=== PATIENT | male | born 1950 | race Two or more races ===

== ENCOUNTER 2017-07-23 13:55 | Inpatient (IN) | payer OTHER ==
[~2017-07-23] VITALS: Ht 175.3 cm; Wt 78.5 kg
[~2017-07-23 13:55] MED LIST: ASPI81CH43 PO; DULO30CA2 PO; HYDR-4683 PO; ISOS10TA14 PO; MUPI2OIN10 TOP; NITR0.4S29 SL; ONDA4TAB5 PO; OXYB15TA12 PO; PRAV20TA3 PO; TICA90TA PO
[2017-07-23] MEDS ORDERED: ONDANSETRON HCL 4 MG/2 ML VIAL IV ONE (14:30)
[2017-07-23] MEDS ORDERED: MORPHINE SULFATE 10 MG/ML INJ 1ML SDV IV ONE (14:30)
[2017-07-23 14:41] LABS: Basophils # (auto) 0 uL; Basophils % (auto) 0.3 % (0.0-2.0); Eosinophils # (auto) 0.1 uL; Eosinophils % (auto) 0.6 % (0.0-7.0)
[2017-07-23 14:42] LABS: Hematocrit 32.7 % (41.0-53.0); Hemoglobin 10.8 g/dL (13.5-17.5); Lymphocytes # (auto) 1.6 uL; Lymphocytes % (auto) 14.4 % (10.0-50.0); Mean Corpuscular Hgb Conc. 33.2 g/dL (32.0-36.0); Mean Corpuscular Volume 93.3 fL (80.0-100.0); Monocytes # (auto) 0.8 uL; Monocytes % (auto) 7.4 % (0.0-12.0); Neutrophils # (auto) 8.5 uL; Neutrophils % (auto) 77.3 % (37.0-80.0); Platelet Count (auto) 606 10^3/uL (140-450); Red Cell Distribution Width 14.4 % (11.8-14.3); White Blood Cell 11.1 10^3/uL (4.4-10.8)
[2017-07-23 15:02] LABS: BUN/Creatinine Ratio 36.5; Bilirubin, Total 0.3 mg/dL (0.2-1.0); Calcium 9.2 mg/dL (8.5-10.1); Magnesium 1.9 mg/dL (1.6-2.6); Total Protein 7.3 g/dL (6.4-8.2)
[2017-07-23 15:06] LABS: Partial Thromboplastin Time 25.2 sec (22.64-33.71); Prothrombin Time 10.9 sec (9.37-12.3)
[2017-07-23] MEDS ORDERED: METOPROLOL TARTRATE 25 MG TAB PO ONE (15:15)
[2017-07-23] MEDS ORDERED: NITROGLYCERIN 0.4 MG SL TAB SL PRN (15:15)
[2017-07-23] MEDS ORDERED: ENOXAPARIN SOD 80 MG/0.8ML SYRINGE SC ONE (15:15)
[2017-07-23 15:19] LABS: B-Type Natriuretic Peptide 11.03 pg/mL (0-100)
[2017-07-23] MEDS ORDERED: IOHEXOL 350 MG/ML 100ML IJ ONE (15:26)
[2017-07-23] MEDS: ALPRAZolam 0.25 MG TAB PO SCH ×2 (15:30→22:44)
[2017-07-23] MEDS ORDERED: PANTOPRAZOLE 40 MG TAB PO ONE (15:30)
[2017-07-23 15:40] LABS: Temperature: 23.1 C (20.0-25.0)
[2017-07-23 17:00] VITALS: BP 102/72
[2017-07-23] MEDS ORDERED: AMLO5TAB2 PO (17:51)
[2017-07-23] MEDS ORDERED: TICA90TA PO (17:51)
[2017-07-23] MEDS ORDERED: ATOR20TA50 PO (17:52)
[2017-07-23] MEDS ORDERED: CLOP75TA28 PO (17:52)
[2017-07-23] MEDS ORDERED: LISI-646 PO (17:53)
[2017-07-23] MEDS ORDERED: CARV3.1240 PO (17:54)
[2017-07-23 18:11] LABS: Urine Bilirubin Negative (Negative); Urine Blood 1+ /uL (Negative); Urine Color Yellow (Yellow); Urine Glucose Normal (Normal); Urine Ketone Negative (Negative); Urine Mucus FEW (None Seen); Urine Nitrite Negative (Negative); Urine RBC 16 /hpf (0 - 3); Urine Squamous Epithelial Cell FEW /hpf (<5); Urine Urobilinogen Normal (Negative); Urine pH 5.5 (5.0-8.0)
[2017-07-23] MEDS: HYDROcodone-ACET 5/325MG TAB PO PRN ×2 (18:31→23:44)
[2017-07-23] MEDS ORDERED: SODIUM CHLORIDE 0.9% 1,000 ML IV ONE (18:45)
[2017-07-23 20:00] VITALS: BP 117/90
[2017-07-23] MEDS: TICAGRELOR 90 MG TAB PO SCH (22:43)
[2017-07-23] MEDS: ATORVASTATIN 20 MG TAB PO SCH (22:44)
[2017-07-23] MEDS: METOPROLOL TARTRATE 25 MG TAB PO SCH (22:46)
[2017-07-24] VITALS: BP 123/87
[2017-07-24] MEDS: ONDANSETRON HCL 4 MG/2 ML VIAL IV PRN ×2 (00:58→18:27)
[2017-07-24] MEDS: MORPHINE SULFATE 10 MG/ML INJ 1ML SDV IV PRN ×2 (01:34→23:15)
[2017-07-24 02:00] VITALS: BP 117/79
[2017-07-24 04:30] VITALS: BP 107/47
[2017-07-24 05:03] LABS: Eosinophils # (auto) 0.1 uL; Eosinophils % (auto) 1.2 % (0.0-7.0); Lymphocytes # (auto) 1.6 uL
[2017-07-24 05:05] LABS: Basophils # (auto) 0 uL; Basophils % (auto) 0.4 % (0.0-2.0); Hematocrit 23.9 % (41.0-53.0); Hemoglobin 8.2 g/dL (13.5-17.5); Lymphocytes % (auto) 17.5 % (10.0-50.0); Mean Corpuscular Hemoglobin 31.9 pg (28.0-32.0); Mean Corpuscular Hgb Conc. 34.1 g/dL (32.0-36.0); Mean Corpuscular Volume 93.5 fL (80.0-100.0); Mean Platelet Volume 7.7 fL (6.9-10.8); Monocytes # (auto) 0.6 uL; Neutrophils # (auto) 6.7 uL; Neutrophils % (auto) 73.9 % (37.0-80.0); Platelet Count (auto) 390 10^3/uL (140-450); Red Cell Distribution Width 14.5 % (11.8-14.3); White Blood Cell 9.1 10^3/uL (4.4-10.8)
[2017-07-24 05:20] LABS: Calcium 8.4 mg/dL (8.5-10.1); Potassium 3.8 mmol/L (3.5-5.1)
[2017-07-24 05:23] LABS: BUN/Creatinine Ratio 46.5
[2017-07-24] MEDS: HYDROcodone-ACET 5/325MG TAB PO PRN ×3 (06:28→20:23)
[2017-07-24] MEDS ORDERED: ASPirin 81 mg TAB PO SCH (10:00)
[2017-07-24] MEDS: TICAGRELOR 90 MG TAB PO SCH (10:30)
[2017-07-24] MEDS: ALPRAZolam 0.25 MG TAB PO SCH (10:30)
[2017-07-24] MEDS: METOPROLOL TARTRATE 25 MG TAB PO SCH ×2 (10:31→22:04)
[2017-07-24] MEDS: PANTOPRAZOLE 40 MG TAB PO SCH (10:32)
[2017-07-24] MEDS: DULoxetine HCL 30 MG CAP PO SCH (10:32)
[2017-07-24 12:00] VITALS: BP 111/74
[2017-07-24] MEDS: RANOLAZINE ER 500 MG TAB PO SCH ×2 (12:00→22:07)
[2017-07-24 16:00] VITALS: BP 127/87
[2017-07-24] MEDS ORDERED: LEVALBUTEROL HCL 1.25 MG/3 ML NEB NEB PRN (18:45)
[2017-07-24 19:07] LABS: Basophils # (auto) 0 uL; Basophils % (auto) 0.4 % (0.0-2.0); Eosinophils # (auto) 0.1 uL; Mean Corpuscular Volume 94.9 fL (80.0-100.0); Mean Platelet Volume 7.9 fL (6.9-10.8); Monocytes # (auto) 0.7 uL; Nucleated Red Blood Cells % 0.1 %
[2017-07-24 19:08] LABS: Eosinophils % (auto) 0.7 % (0.0-7.0); Hematocrit 20.8 % (41.0-53.0); Lymphocytes # (auto) 1.2 uL; Lymphocytes % (auto) 10.1 % (10.0-50.0); Mean Corpuscular Hemoglobin 31.6 pg (28.0-32.0); Mean Corpuscular Hgb Conc. 33.3 g/dL (32.0-36.0); Monocytes % (auto) 6.1 % (0.0-12.0); Neutrophils # (auto) 9.4 uL; Neutrophils % (auto) 82.7 % (37.0-80.0); Platelet Count (auto) 354 10^3/uL (140-450); Red Cell Distribution Width 14.5 % (11.8-14.3); White Blood Cell 11.4 10^3/uL (4.4-10.8)
[2017-07-24 19:16] LABS: Hemoglobin 6.9 g/dL (13.5-17.5)
[2017-07-24 21:08] VITALS: BP 127/87
[2017-07-24] MEDS ORDERED: TICAGRELOR 90 MG TAB PO SCH (22:00)
[2017-07-24] MEDS ORDERED: ISOSORBIDE DINITRATE 10 MG TAB PO SCH (22:00)
[2017-07-24] MEDS: LEVALBUTEROL HCL 1.25 MG/3 ML NEB NEB SCH (22:02)
[2017-07-24] MEDS: ATORVASTATIN 20 MG TAB PO SCH (22:03)
[2017-07-25] VITALS (21 sets, daily range): BP systolic 82–163; BP diastolic 40–103
[2017-07-25] MEDS: ONDANSETRON HCL 4 MG/2 ML VIAL IV PRN (03:26)
[2017-07-25] MEDS: LEVALBUTEROL HCL 1.25 MG/3 ML NEB NEB SCH ×3 (05:47→19:11)
[2017-07-25] MEDS ORDERED: ALPR0.5T PO (06:24)
[2017-07-25] MEDS ORDERED: PANTOPRAZOLE 40 MG/10 ML VIAL IV ONE ×2 (06:35→06:45)
[2017-07-25 08:02] LABS: Basophils # (auto) 0 uL; Eosinophils # (auto) 0 uL; Eosinophils % (auto) 0.1 % (0.0-7.0); Lymphocytes # (auto) 1.1 uL; Mean Corpuscular Hgb Conc. 33.8 g/dL (32.0-36.0); Mean Platelet Volume 7.8 fL (6.9-10.8); Monocytes # (auto) 0.7 uL; Neutrophils % (auto) 84.3 % (37.0-80.0)
[2017-07-25 08:04] LABS: Basophils % (auto) 0.3 % (0.0-2.0); Hematocrit 23.7 % (41.0-53.0); Lymphocytes % (auto) 9.3 % (10.0-50.0); Mean Corpuscular Hemoglobin 30.4 pg (28.0-32.0); Mean Corpuscular Volume 89.8 fL (80.0-100.0); Nucleated Red Blood Cells % 0.4 %; Platelet Count (auto) 305 10^3/uL (140-450); Red Cell Distribution Width 15.4 % (11.8-14.3); White Blood Cell 11.8 10^3/uL (4.4-10.8)
[2017-07-25 08:20] LABS: BUN/Creatinine Ratio 53.7; Calcium 7.8 mg/dL (8.5-10.1)
[2017-07-25] MEDS ORDERED: MORPHINE SULFATE 10 MG/ML INJ 1ML SDV IV PRN (08:45)
[2017-07-25] MEDS: PANTOPRAZOLE 80 MG in SODIUM CHL 0.9% 60 ML IV SCH ×2 (09:00→16:07)
[2017-07-25] MEDS: RANOLAZINE ER 500 MG TAB PO SCH ×2 (10:00→22:45)
[2017-07-25] MEDS: DULoxetine HCL 30 MG CAP PO SCH (10:00)
[2017-07-25] MEDS ORDERED: CLOPIDOGREL 300 MG TAB PO ONE (10:00)
[2017-07-25] MEDS: PANTOPRAZOLE 40 MG TAB PO SCH (10:00)
[2017-07-25] MEDS ORDERED: hydrALAZINE HCL 20 MG/ML VL IV PRN (14:15)
[2017-07-25] MEDS ORDERED: CLOPIDOGREL BISULFATE 75 MG TAB PO ONE (16:15)
[2017-07-25 18:32] LABS: Basophils # (auto) 0 uL; Basophils % (auto) 0.3 % (0.0-2.0); Eosinophils # (auto) 0 uL; Hematocrit 29.8 % (41.0-53.0); Hemoglobin 10.3 g/dL (13.5-17.5); Lymphocytes # (auto) 1.1 uL; Lymphocytes % (auto) 6.7 % (10.0-50.0); Mean Corpuscular Hemoglobin 30.7 pg (28.0-32.0); Mean Corpuscular Hgb Conc. 34.6 g/dL (32.0-36.0); Mean Corpuscular Volume 88.8 fL (80.0-100.0); Mean Platelet Volume 8.1 fL (6.9-10.8); Monocytes # (auto) 1.3 uL; Monocytes % (auto) 7.9 % (0.0-12.0); Neutrophils # (auto) 14.3 uL; Neutrophils % (auto) 85.1 % (37.0-80.0); Nucleated Red Blood Cells % 0.3 %; Platelet Count (auto) 294 10^3/uL (140-450); Red Cell Distribution Width 15.1 % (11.8-14.3); White Blood Cell 16.8 10^3/uL (4.4-10.8)
[2017-07-25] MEDS: IPRATROPIUM BROM 0.5 MG/2.5ML INH SOL NEB PRN (19:10)
[2017-07-25] MEDS: HYDROcodone-ACET 5/325MG TAB PO PRN (19:44)
[2017-07-25] MEDS: ALPRAZolam 0.25 MG TAB PO PRN (20:17)
[2017-07-25] MEDS ORDERED: METOPROLOL TARTRATE 25 MG TAB PO SCH (22:00)
[2017-07-25] MEDS: ATORVASTATIN 20 MG TAB PO SCH (22:46)
[2017-07-25] MEDS: METOPROLOL TARTRATE 25 MG TAB PO SCH (22:47)
[2017-07-26] VITALS (23 sets, daily range): BP systolic 112–148; BP diastolic 71–97
[2017-07-26] MEDS: LEVALBUTEROL HCL 1.25 MG/3 ML NEB NEB SCH ×5 (00:39→22:26)
[2017-07-26] MEDS: IPRATROPIUM BROM 0.5 MG/2.5ML INH SOL NEB PRN (00:40)
[2017-07-26 00:55] LABS: Hematocrit 24.3 % (41.0-53.0); Hemoglobin 8.4 g/dL (13.5-17.5); Mean Corpuscular Hemoglobin 30.4 pg (28.0-32.0); Mean Corpuscular Hgb Conc. 34.5 g/dL (32.0-36.0); Red Cell Distribution Width 15.5 % (11.8-14.3); White Blood Cell 12.6 10^3/uL (4.4-10.8)
[2017-07-26 00:56] LABS: Mean Platelet Volume 7.9 fL (6.9-10.8); Platelet Count (auto) 226 10^3/uL (140-450)
[2017-07-26 00:58] LABS: Myelocytes % 0; Promyelocytes % 0; Reactive Lymphocytes 0
[2017-07-26 01:30] LABS: Hypersegmented Neutrophils Present; Metamyelocytes % 1; Platelet Estimate Adequate
[2017-07-26 01:31] LABS: Anisocytosis Moderate; Polychromasia Slight
[2017-07-26] MEDS: PANTOPRAZOLE 80 MG in SODIUM CHL 0.9% 60 ML IV SCH ×2 (02:19→11:00)
[2017-07-26] MEDS: HYDROcodone-ACET 5/325MG TAB PO PRN ×3 (02:20→18:10)
[2017-07-26 04:51] LABS: Basophils # (auto) 0 uL; Basophils % (auto) 0.2 % (0.0-2.0); Eosinophils # (auto) 0 uL; Eosinophils % (auto) 0.2 % (0.0-7.0); Lymphocytes # (auto) 1.1 uL; Mean Platelet Volume 8.1 fL (6.9-10.8); White Blood Cell 11.6 10^3/uL (4.4-10.8)
[2017-07-26 04:53] LABS: Hematocrit 22.8 % (41.0-53.0); Lymphocytes % (auto) 9.6 % (10.0-50.0); Mean Corpuscular Hemoglobin 30.4 pg (28.0-32.0); Mean Corpuscular Hgb Conc. 34.9 g/dL (32.0-36.0); Mean Corpuscular Volume 87.1 fL (80.0-100.0); Monocytes % (auto) 8.6 % (0.0-12.0); Neutrophils # (auto) 9.4 uL; Neutrophils % (auto) 81.4 % (37.0-80.0); Nucleated Red Blood Cells % 0.4 %; Platelet Count (auto) 223 10^3/uL (140-450); Red Cell Distribution Width 15.3 % (11.8-14.3)
[2017-07-26 05:07] LABS: INR 1.02 (0.9-1.15); Prothrombin Time 11.1 sec (9.37-12.3)
[2017-07-26 05:10] LABS: Albumin 2.3 g/dL (3.4-5.0); Calcium 7.4 mg/dL (8.5-10.1); Magnesium 2.1 mg/dL (1.6-2.6); Potassium 3.8 mmol/L (3.5-5.1)
[2017-07-26 05:12] LABS: BUN/Creatinine Ratio 58.1
[2017-07-26 05:16] LABS: Bilirubin, Total 0.3 mg/dL (0.2-1.0)
[2017-07-26 06:59] LABS: Temperature: 21.7 C (20.0-25.0)
[2017-07-26] MEDS ORDERED: CLOPIDOGREL BISULFATE 75 MG TAB PO SCH (10:00)
[2017-07-26] MEDS: PANTOPRAZOLE 40 MG TAB PO SCH (10:00)
[2017-07-26] MEDS: ONDANSETRON HCL 4 MG/2 ML VIAL IV PRN (10:08)
[2017-07-26] MEDS: DULoxetine HCL 30 MG CAP PO SCH (10:09)
[2017-07-26] MEDS: METOPROLOL TARTRATE 25 MG TAB PO SCH ×2 (10:09→21:52)
[2017-07-26] MEDS: RANOLAZINE ER 500 MG TAB PO SCH ×2 (10:12→21:51)
[2017-07-26 12:16] LABS: Basophils # (auto) 0 uL; Basophils % (auto) 0.2 % (0.0-2.0); Eosinophils # (auto) 0 uL; Eosinophils % (auto) 0.2 % (0.0-7.0); Hematocrit 21.7 % (41.0-53.0); Hemoglobin 7.5 g/dL (13.5-17.5); Lymphocytes # (auto) 1.2 uL; Lymphocytes % (auto) 10.5 % (10.0-50.0); Mean Corpuscular Hemoglobin 30.7 pg (28.0-32.0); Mean Corpuscular Hgb Conc. 34.5 g/dL (32.0-36.0); Mean Corpuscular Volume 89.1 fL (80.0-100.0); Mean Platelet Volume 7.9 fL (6.9-10.8); Neutrophils # (auto) 8.8 uL; Neutrophils % (auto) 80.1 % (37.0-80.0); Nucleated Red Blood Cells % 0.1 %; Platelet Count (auto) 238 10^3/uL (140-450); Red Cell Distribution Width 15.6 % (11.8-14.3); White Blood Cell 11.1 10^3/uL (4.4-10.8)
[2017-07-26] MEDS: ALPRAZolam 0.25 MG TAB PO PRN (13:05)
[2017-07-26] MEDS ORDERED: LIDOCAINE VISCOUS 2% 15ML UD ONE (14:37)
[2017-07-26] MEDS ORDERED: SODIUM CHLORIDE LOCK 10 ML ONE (14:37)
[2017-07-26] MEDS ORDERED: fentaNYL CITRATE 100 MCG/2 ML VL ONE (14:38)
[2017-07-26] MEDS ORDERED: MIDAZOLAM HCL 5 MG/ML-1ML VIAL ONE (14:38)
[2017-07-26] MEDS ORDERED: diphenhdrAMINE HCL 50 MG/1 ML VL ONE (14:38)
[2017-07-26] MEDS ORDERED: FLUMAZENIL 0.1 MG/ML INJ 10ML MDV IV ONE (14:53)
[2017-07-26] MEDS ORDERED: NALOXONE HCL 0.4 MG/ML VIAL ONE (14:53)
[2017-07-26] MEDS: CLOPIDOGREL BISULFATE 75 MG TAB PO SCH (18:09)
[2017-07-26 21:30] LABS: Basophils # (auto) 0 uL; Basophils % (auto) 0.2 % (0.0-2.0); Eosinophils # (auto) 0 uL; Eosinophils % (auto) 0.3 % (0.0-7.0); Hemoglobin 9.7 g/dL (13.5-17.5); Lymphocytes # (auto) 1.3 uL; Lymphocytes % (auto) 14.4 % (10.0-50.0); Mean Corpuscular Hgb Conc. 34.7 g/dL (32.0-36.0); Mean Corpuscular Volume 89.3 fL (80.0-100.0); Monocytes % (auto) 10.3 % (0.0-12.0); Neutrophils % (auto) 74.8 % (37.0-80.0); Nucleated Red Blood Cells % 0.2 %; Platelet Count (auto) 201 10^3/uL (140-450); Red Cell Distribution Width 15.5 % (11.8-14.3); White Blood Cell 9.3 10^3/uL (4.4-10.8)
[2017-07-26] MEDS: ATORVASTATIN 20 MG TAB PO SCH (21:51)
[2017-07-26] MEDS: PANTOPRAZOLE 40 MG/10 ML VIAL IV SCH (21:52)
[2017-07-26 22:36] LABS: Platelet Estimate Adequate
[2017-07-26 22:37] LABS: Anisocytosis Moderate; Ovalocytes FEW; Polychromasia Slight
[2017-07-27] VITALS (9 sets, daily range): BP systolic 120–151; BP diastolic 75–94
[2017-07-27] MEDS: HYDROcodone-ACET 5/325MG TAB PO PRN ×4 (00:16→20:04)
[2017-07-27 00:50] LABS: Basophils # (auto) 0 uL; Basophils % (auto) 0.3 % (0.0-2.0); Eosinophils # (auto) 0 uL; Eosinophils % (auto) 0.5 % (0.0-7.0); Hematocrit 28.9 % (41.0-53.0); Lymphocytes # (auto) 1.3 uL; Lymphocytes % (auto) 12.7 % (10.0-50.0); Mean Corpuscular Hemoglobin 30.9 pg (28.0-32.0); Mean Corpuscular Hgb Conc. 34.5 g/dL (32.0-36.0); Mean Corpuscular Volume 89.7 fL (80.0-100.0); Mean Platelet Volume 8.2 fL (6.9-10.8); Monocytes # (auto) 0.8 uL; Monocytes % (auto) 8.5 % (0.0-12.0); Neutrophils # (auto) 7.7 uL; Platelet Count (auto) 213 10^3/uL (140-450); Red Cell Distribution Width 15.2 % (11.8-14.3); White Blood Cell 9.9 10^3/uL (4.4-10.8)
[2017-07-27 05:13] LABS: Basophils # (auto) 0 uL; Basophils % (auto) 0.4 % (0.0-2.0); Eosinophils # (auto) 0 uL; Eosinophils % (auto) 0.5 % (0.0-7.0); Hematocrit 29.6 % (41.0-53.0); Hemoglobin 10.1 g/dL (13.5-17.5); Lymphocytes # (auto) 0.8 uL; Lymphocytes % (auto) 10.9 % (10.0-50.0); Mean Corpuscular Hemoglobin 30.5 pg (28.0-32.0); Mean Corpuscular Hgb Conc. 34.2 g/dL (32.0-36.0); Mean Corpuscular Volume 89.3 fL (80.0-100.0); Mean Platelet Volume 8.3 fL (6.9-10.8); Monocytes # (auto) 0.7 uL; Monocytes % (auto) 9.1 % (0.0-12.0); Neutrophils # (auto) 5.8 uL; Neutrophils % (auto) 79.1 % (37.0-80.0); Nucleated Red Blood Cells % 0.2 %; Platelet Count (auto) 201 10^3/uL (140-450); Red Cell Distribution Width 15.2 % (11.8-14.3); White Blood Cell 7.3 10^3/uL (4.4-10.8)
[2017-07-27 05:28] LABS: Partial Thromboplastin Time 24.1 sec (22.64-33.71); Prothrombin Time 10.9 sec (9.37-12.3)
[2017-07-27 05:29] LABS: BUN/Creatinine Ratio 38.4; Calcium 8.2 mg/dL (8.5-10.1); Magnesium 2.3 mg/dL (1.6-2.6); Potassium 3.8 mmol/L (3.5-5.1)
[2017-07-27] MEDS: IPRATROPIUM BROM 0.5 MG/2.5ML INH SOL NEB PRN ×2 (06:08→11:45)
[2017-07-27] MEDS: LEVALBUTEROL HCL 1.25 MG/3 ML NEB NEB SCH ×4 (06:08→18:27)
[2017-07-27] MEDS: ALPRAZolam 0.25 MG TAB PO PRN ×3 (07:41→22:55)
[2017-07-27] MEDS: PANTOPRAZOLE 40 MG TAB PO SCH (10:56)
[2017-07-27] MEDS: DULoxetine HCL 30 MG CAP PO SCH (10:56)
[2017-07-27] MEDS: METOPROLOL TARTRATE 25 MG TAB PO SCH ×2 (10:57→22:12)
[2017-07-27] MEDS: PANTOPRAZOLE 40 MG/10 ML VIAL IV SCH ×2 (10:57→22:11)
[2017-07-27] MEDS: RANOLAZINE ER 500 MG TAB PO SCH ×2 (10:57→22:11)
[2017-07-27 12:26] LABS: Basophils # (auto) 0 uL; Basophils % (auto) 0.3 % (0.0-2.0); Eosinophils # (auto) 0 uL; Eosinophils % (auto) 0.3 % (0.0-7.0); Hematocrit 29.2 % (41.0-53.0); Hemoglobin 10.1 g/dL (13.5-17.5); Lymphocytes # (auto) 0.9 uL; Lymphocytes % (auto) 10.8 % (10.0-50.0); Mean Corpuscular Hemoglobin 30.9 pg (28.0-32.0); Mean Corpuscular Hgb Conc. 34.6 g/dL (32.0-36.0); Mean Corpuscular Volume 89.3 fL (80.0-100.0); Mean Platelet Volume 8.4 fL (6.9-10.8); Monocytes # (auto) 0.8 uL; Monocytes % (auto) 9.7 % (0.0-12.0); Neutrophils # (auto) 6.6 uL; Neutrophils % (auto) 78.9 % (37.0-80.0); Nucleated Red Blood Cells % 0.2 %; Platelet Count (auto) 225 10^3/uL (140-450); Red Cell Distribution Width 15.2 % (11.8-14.3); White Blood Cell 8.4 10^3/uL (4.4-10.8)
[2017-07-27] MEDS: CLOPIDOGREL BISULFATE 75 MG TAB PO SCH (18:21)
[2017-07-27] MEDS: ATORVASTATIN 20 MG TAB PO SCH (22:11)
[2017-07-28] VITALS: BP 129/73
[2017-07-28] MEDS: LEVALBUTEROL HCL 1.25 MG/3 ML NEB NEB SCH ×4 (00:24→20:33)
[2017-07-28 01:20] LABS: Erythropoietin 34.2 mIU/mL (2.6-18.5)
[2017-07-28] MEDS: ALPRAZolam 0.25 MG TAB PO PRN (04:51)
[2017-07-28] MEDS: HYDROcodone-ACET 5/325MG TAB PO PRN (04:52)
[2017-07-28 05:29] LABS: Hematocrit 28.7 % (41.0-53.0); Hemoglobin 10.1 g/dL (13.5-17.5); Mean Corpuscular Hemoglobin 31.5 pg (28.0-32.0); Mean Corpuscular Hgb Conc. 35.3 g/dL (32.0-36.0); Mean Corpuscular Volume 89.4 fL (80.0-100.0); Mean Platelet Volume 8.3 fL (6.9-10.8); Platelet Count (auto) 217 10^3/uL (140-450); Red Cell Distribution Width 15.1 % (11.8-14.3); White Blood Cell 7.4 10^3/uL (4.4-10.8)
[2017-07-28 05:32] LABS: Metamyelocytes % 0; Myelocytes % 0; Promyelocytes % 0; Reactive Lymphocytes 0
[2017-07-28 05:47] LABS: BUN/Creatinine Ratio 21.8; Calcium 7.8 mg/dL (8.5-10.1); Magnesium 2.3 mg/dL (1.6-2.6); Potassium 3.5 mmol/L (3.5-5.1)
[2017-07-28 08:25] VITALS: BP 152/95
[2017-07-28] MEDS ORDERED: HYDROmorphone HCL 2 MG/ML VL ONE (09:21)
[2017-07-28] MEDS: PANTOPRAZOLE 40 MG/10 ML VIAL IV SCH ×2 (09:35→22:58)
[2017-07-28] MEDS: RANOLAZINE ER 500 MG TAB PO SCH ×2 (09:35→22:58)
[2017-07-28] MEDS ORDERED: DULoxetine HCL 30 MG CAP PO ONE (09:35)
[2017-07-28] MEDS: DULoxetine HCL 30 MG CAP PO SCH (09:36)
[2017-07-28] MEDS: METOPROLOL TARTRATE 25 MG TAB PO SCH ×2 (09:39→22:59)
[2017-07-28] MEDS: HYDROmorphone HCL 2 MG/ML VL IV PRN ×4 (09:52→20:53)
[2017-07-28 11:21] LABS: Platelet Estimate Adequate
[2017-07-28 11:59] VITALS: BP 158/91
[2017-07-28 16:00] VITALS: BP 146/99
[2017-07-28] MEDS: CLOPIDOGREL BISULFATE 75 MG TAB PO SCH (18:14)
[2017-07-28] MEDS: IPRATROPIUM BROM 0.5 MG/2.5ML INH SOL NEB PRN (20:33)
[2017-07-28] MEDS: ATORVASTATIN 20 MG TAB PO SCH (22:59)
[2017-07-29] MEDS: LEVALBUTEROL HCL 1.25 MG/3 ML NEB NEB SCH ×4 (00:23→18:04)
[2017-07-29] MEDS: IPRATROPIUM BROM 0.5 MG/2.5ML INH SOL NEB PRN ×2 (00:23→18:04)
[2017-07-29 05:24] LABS: Basophils # (auto) 0 uL; Basophils % (auto) 0.3 % (0.0-2.0); Eosinophils # (auto) 0.1 uL; Eosinophils % (auto) 1.7 % (0.0-7.0); Hematocrit 31.2 % (41.0-53.0); Hemoglobin 10.8 g/dL (13.5-17.5); Lymphocytes # (auto) 0.9 uL; Lymphocytes % (auto) 12.4 % (10.0-50.0); Mean Corpuscular Hemoglobin 31.3 pg (28.0-32.0); Mean Corpuscular Hgb Conc. 34.6 g/dL (32.0-36.0); Mean Corpuscular Volume 90.5 fL (80.0-100.0); Mean Platelet Volume 8.4 fL (6.9-10.8); Monocytes # (auto) 0.7 uL; Monocytes % (auto) 9.1 % (0.0-12.0); Neutrophils # (auto) 5.6 uL; Neutrophils % (auto) 76.5 % (37.0-80.0); Nucleated Red Blood Cells % 0.1 %; Platelet Count (auto) 253 10^3/uL (140-450); Red Cell Distribution Width 15.5 % (11.8-14.3); White Blood Cell 7.4 10^3/uL (4.4-10.8)
[2017-07-29 05:42] LABS: BUN/Creatinine Ratio 12.2; Magnesium 2.2 mg/dL (1.6-2.6); Phosphorus 2.8 mg/dL (2.5-4.90); Potassium 3.5 mmol/L (3.5-5.1)
[2017-07-29] MEDS: HYDROcodone-ACET 5/325MG TAB PO PRN ×3 (07:40→23:22)
[2017-07-29 08:00] VITALS: BP 143/97
[2017-07-29] MEDS: METOPROLOL TARTRATE 25 MG TAB PO SCH ×2 (09:49→21:59)
[2017-07-29] MEDS: PANTOPRAZOLE 40 MG/10 ML VIAL IV SCH ×2 (09:49→21:54)
[2017-07-29] MEDS: DULoxetine HCL 30 MG CAP PO SCH (09:49)
[2017-07-29] MEDS: RANOLAZINE ER 500 MG TAB PO SCH ×2 (09:51→21:54)
[2017-07-29] MEDS: HYDROmorphone HCL 2 MG/ML VL IV PRN ×2 (10:05→19:59)
[2017-07-29] MEDS: CYANOCOBALAMIN 500 MCG TAB PO SCH (10:16)
[2017-07-29 12:00] VITALS: BP 140/91
[2017-07-29 16:00] VITALS: BP 140/99
[2017-07-29] MEDS: CLOPIDOGREL BISULFATE 75 MG TAB PO SCH (17:37)
[2017-07-29 20:00] VITALS: BP 126/87
[2017-07-29] MEDS: ALPRAZolam 0.25 MG TAB PO PRN (21:37)
[2017-07-29] MEDS: ATORVASTATIN 20 MG TAB PO SCH (21:54)
[2017-07-30] VITALS: BP 119/85
[2017-07-30] MEDS: HYDROmorphone HCL 2 MG/ML VL IV PRN (01:01)
[2017-07-30 05:25] LABS: Hematocrit 30.7 % (41.0-53.0); Hemoglobin 10.6 g/dL (13.5-17.5); Mean Corpuscular Hgb Conc. 34.4 g/dL (32.0-36.0); Mean Corpuscular Volume 90.2 fL (80.0-100.0); Platelet Count (auto) 254 10^3/uL (140-450); Red Cell Distribution Width 15.6 % (11.8-14.3); White Blood Cell 6.7 10^3/uL (4.4-10.8)
[2017-07-30 05:44] LABS: Metamyelocytes % 0; Myelocytes % 0; Promyelocytes % 0; Reactive Lymphocytes 0
[2017-07-30 07:46] LABS: Platelet Estimate Adequate
[2017-07-30 08:00] VITALS: BP 133/83
[2017-07-30] MEDS: RANOLAZINE ER 500 MG TAB PO SCH (10:22)
[2017-07-30] MEDS: METOPROLOL TARTRATE 25 MG TAB PO SCH (10:22)
[2017-07-30] MEDS: PANTOPRAZOLE 40 MG/10 ML VIAL IV SCH (10:22)
[2017-07-30] MEDS: CYANOCOBALAMIN 500 MCG TAB PO SCH (10:22)
[2017-07-30] MEDS: DULoxetine HCL 30 MG CAP PO SCH (10:22)
[2017-07-30] MEDS ORDERED: CLOP75TA28 PO (10:23)
[2017-07-30 11:43] VITALS: BP 113/70
== END 2017-07-30 14:39 | disposition home or self-care (01) | DRG 378 ==
LOC: ER 13:55 → EDBD 13:55 → TELE 13:56 → DOU IN ICU 17:00
PROVIDERS: ADMIT Internal Medicine; ATTEND Internal Medicine
PROC: 30233N1 Transfusion of Nonautologous Red Blood Cells into Peripheral Vein, Percutaneous Approach (ICD-10-PCS; principal; 2017-07-25)
PROC: 30233N1 Transfusion of Nonautologous Red Blood Cells into Peripheral Vein, Percutaneous Approach (ICD-10-PCS; 2017-07-25)
PROC: 0DJ08ZZ Inspection of Upper Intestinal Tract, Via Natural or Artificial Opening Endoscopic (ICD-10-PCS; 2017-07-26)
DX: K92.2 Gastrointestinal hemorrhage, unspecified (principal); D62 Acute posthemorrhagic anemia; I24.9 Acute ischemic heart disease, unspecified; K74.60 Unspecified cirrhosis of liver; D59.1 Other autoimmune hemolytic anemias; E86.0 Dehydration; M16.0 Bilateral primary osteoarthritis of hip; I10 Essential (primary) hypertension; I25.10 Atherosclerotic heart disease of native coronary artery without angina pectoris; R09.02 Hypoxemia; K20.9 Esophagitis, unspecified; E78.5 Hyperlipidemia, unspecified; E87.6 Hypokalemia; F32.9 Major depressive disorder, single episode, unspecified; F41.9 Anxiety disorder, unspecified; Z79.02 Long term (current) use of antithrombotics/antiplatelets; Z79.899 Other long term (current) drug therapy; K25.9 Gastric ulcer, unspecified as acute or chronic, without hemorrhage or perforation; Z80.42 Family history of malignant neoplasm of prostate; Z82.49 Family history of ischemic heart disease and other diseases of the circulatory system; Z82.5 Family history of asthma and other chronic lower respiratory diseases; Z83.3 Family history of diabetes mellitus; Z85.46 Personal history of malignant neoplasm of prostate; Z90.79 Acquired absence of other genital organ(s); Z95.5 Presence of coronary angioplasty implant and graft
CPT/HCPCS: 36415; 43235; 71010; 71250; 71275; 73700; 74176; 78278; 80048; 80053; 81001; 82248; 82607; 82668; 82728; 82746; 83010; 83540; 83550; 83615; 83735; 83880; 84100; 84484; 85007; 85025; 85027; 85045; 85379; 85610; 85652; 85730; 86850; 86880; 86900; 86901; 86920; 87081; 93005; 93306; 94640; 96372; 96374; 96375; 97163; 99291; A9560; C9113; J1642; J2250; J2405

== ENCOUNTER 2018-01-03 09:25 | Emergency (ER) | payer OTHER ==
[~2018-01-03] VITALS: Ht 175.3 cm; Wt 81.6 kg
[~2018-01-03 09:25] MED LIST changes: +ALPR0.5T PO; +AMLO5TAB2 PO; +ATOR20TA50 PO; +CLOP75TA28 PO; +LISI-646 PO; -PRAV20TA3 PO; -TICA90TA PO
[2018-01-03 10:08] LABS: Basophils # (auto) 0 uL; Basophils % (auto) 0.4 % (0.0-2.0); Eosinophils # (auto) 0.1 uL; Eosinophils % (auto) 2.4 % (0.0-7.0); Hematocrit 37.3 % (41.0-53.0); Hemoglobin 12.5 g/dL (13.5-17.5); Lymphocytes # (auto) 0.9 uL; Mean Corpuscular Hemoglobin 31.5 pg (28.0-32.0); Mean Corpuscular Hgb Conc. 33.5 g/dL (32.0-36.0); Monocytes # (auto) 0.5 uL; Monocytes % (auto) 9.4 % (0.0-12.0); Neutrophils # (auto) 3.6 uL; Neutrophils % (auto) 70.8 % (37.0-80.0); Nucleated Red Blood Cells % 0.1 %; Platelet Count (auto) 287 10^3/uL (140-450); Red Blood Cells 3.97 10^6/uL (4.5-5.90); Red Cell Distribution Width 16.6 % (11.8-14.3); White Blood Cell 5.1 10^3/uL (4.4-10.8)
[2018-01-03 10:23] LABS: Albumin 3.2 g/dL (3.4-5.0); BUN/Creatinine Ratio 11.8; Bilirubin, Total 0.2 mg/dL (0.2-1.0); Calcium 7.9 mg/dL (8.5-10.1); Potassium 3.8 mmol/L (3.5-5.1); Total Protein 6.5 g/dL (6.4-8.2)
[2018-01-03 10:30] VITALS: BP 155/93
[2018-01-03] MEDS ORDERED: HYDROcodone-ACET 10/325MG TAB PO ONE (10:30)
== END 2018-01-03 12:15 | disposition home or self-care (01) ==
LOC: EDBD 09:25 → ER 09:31
DX: S01.01XA Laceration without foreign body of scalp, initial encounter (principal); I25.10 Atherosclerotic heart disease of native coronary artery without angina pectoris; E78.5 Hyperlipidemia, unspecified; I10 Essential (primary) hypertension; I25.2 Old myocardial infarction; Z98.61 Coronary angioplasty status; Z79.899 Other long term (current) drug therapy; Z79.82 Long term (current) use of aspirin; W01.0XXA Fall on same level from slipping, tripping and stumbling without subsequent striking against object, initial encounter; Y93.89 Activity, other specified; Y92.89 Other specified places as the place of occurrence of the external cause; Y99.8 Other external cause status
CPT/HCPCS: 12002; 36415; 70450; 80053; 85025

== ENCOUNTER 2018-01-28 07:28 | Inpatient (IN) | payer OTHER ==
[~2018-01-28] VITALS: Ht 175.3 cm; Wt 79.2 kg
[2018-01-28] MEDS ORDERED: SODIUM CHLORIDE 0.9% 1,000 ML IV ONE (07:44)
[2018-01-28] MEDS ORDERED: NITROGLYCERIN 0.4 MG SL TAB SL ONE (07:45)
[2018-01-28] MEDS ORDERED: KETOROLAC TROMETH 30 MG/ML 1ML VIAL IV ONE (07:45)
[2018-01-28] MEDS ORDERED: ASPirin 81 mg TAB PO ONE (07:45)
[2018-01-28 08:17] LABS: Basophils # (auto) 0 uL; Basophils % (auto) 0.7 % (0.0-2.0); Eosinophils # (auto) 0.2 uL; Eosinophils % (auto) 3.4 % (0.0-7.0); Hematocrit 40.2 % (41.0-53.0); Hemoglobin 13.2 g/dL (13.5-17.5); Lymphocytes # (auto) 1.4 uL; Lymphocytes % (auto) 22.8 % (10.0-50.0); Mean Corpuscular Hemoglobin 31.5 pg (28.0-32.0); Mean Corpuscular Hgb Conc. 32.8 g/dL (32.0-36.0); Mean Corpuscular Volume 96.1 fL (80.0-100.0); Monocytes # (auto) 0.5 uL; Monocytes % (auto) 7.9 % (0.0-12.0); Neutrophils % (auto) 65.2 % (37.0-80.0); Nucleated Red Blood Cells % 0.1 %; Platelet Count (auto) 325 10^3/uL (140-450); Red Blood Cells 4.19 10^6/uL (4.5-5.90); Red Cell Distribution Width 15.5 % (11.8-14.3); White Blood Cell 6.2 10^3/uL (4.4-10.8)
[2018-01-28 08:22] LABS: INR 0.96 (0.9-1.15); Partial Thromboplastin Time 27.5 sec (22.64-33.71); Prothrombin Time 10.5 sec (9.37-12.3)
[2018-01-28 08:35] LABS: Alanine Aminotransferase 21 U/L (16-61); Albumin 3.5 g/dL (3.4-5.0); Alkaline Phosphatase 81 U/L (45-117); Anion Gap 10 (5-15); Aspartate Aminotransferase 24 U/L (15-37); BUN/Creatinine Ratio 14.2; Bilirubin, Total 0.3 mg/dL (0.2-1.0); Blood Urea Nitrogen 15 mg/dL (7-18); Calcium 8.6 mg/dL (8.5-10.1); Carbon Dioxide 22 mmol/L (21-32); Chloride 109 mmol/L (98-107); GFR African American 89 mL/min; GFR Non-African American 74 mL/min; Glucose 122 mg/dL (74-106); Sodium 141 mmol/L (136-145); Total Protein 7.1 g/dL (6.4-8.2)
[2018-01-28] MEDS ORDERED: NITROGLYCERIN 0.4 MG SL TAB SL PRN ×2 (10:45)
[2018-01-28] MEDS ORDERED: ZOLPIDEM TARTRATE 5 MG TAB PO PRN (10:45)
[2018-01-28] MEDS ORDERED: ALPRAZolam 0.5 MG TAB PO PRN (10:45)
[2018-01-28] MEDS ORDERED: ONDANSETRON HCL 4 MG/2 ML VIAL IV PRN (10:45)
[2018-01-28] MEDS ORDERED: ALUM & MAG HYDROX-SIMETH LIQ(MAALOX) 30 ML PO ONE (10:45)
[2018-01-28] MEDS ORDERED: MORPHINE SULFATE 4 MG/ML SYR/VIAL IV PRN (10:45)
[2018-01-28] MEDS ORDERED: ACETAMINOPHEN 325 MG TAB PO PRN (10:45)
[2018-01-28] MEDS: CARVEDILOL 3.125 MG TAB PO SCH ×2 (11:04→23:19)
[2018-01-28] MEDS ORDERED: amLODIPine BESYLATE 5 MG TAB PO ONE (11:30)
[2018-01-28] MEDS: HYDROcodone-ACET 5/325MG TAB PO PRN ×2 (12:29→21:32)
[2018-01-28] MEDS: SODIUM CHLOR 0.9% PF (SALINE LOCK) 10ML VIAL/SYR IV SCH ×2 (14:20→23:20)
[2018-01-28] MEDS: MORPHINE SULFATE 4 MG/ML SYR/VIAL IV PRN ×3 (15:04→22:40)
[2018-01-28] MEDS: ISOSORBIDE DINITRATE 10 MG TAB PO SCH (17:50)
[2018-01-28 18:22] VITALS: BP 151/94
[2018-01-28] MEDS ORDERED: ATORVASTATIN 20 MG TAB PO SCH (22:00)
[2018-01-28 22:07] VITALS: BP 118/64
[2018-01-28] MEDS: DULoxetine HCL 30 MG CAP PO SCH (23:18)
[2018-01-28] MEDS: OXYBUTYNIN CHL 5 MG TAB PO SCH (23:20)
[2018-01-29 01:11] LABS: Urine WBC None Seen /hpf (0 - 3)
[2018-01-29 01:45] LABS: Urine Bacteria NONE SEEN /hpf (None Seen); Urine Blood Negative /uL (Negative); Urine Hyaline Cast FEW /lpf (0 - 2); Urine Mucus FEW (None Seen); Urine Specific Gravity 1.014 (1.001-1.035)
[2018-01-29 05:46] LABS: Basophils # (auto) 0 uL; Basophils % (auto) 0.5 % (0.0-2.0); Eosinophils # (auto) 0.2 uL; Eosinophils % (auto) 3.4 % (0.0-7.0); Hematocrit 32.2 % (41.0-53.0); Lymphocytes # (auto) 1.2 uL; Lymphocytes % (auto) 23.3 % (10.0-50.0); Mean Corpuscular Hemoglobin 32.6 pg (28.0-32.0); Mean Corpuscular Hgb Conc. 34.1 g/dL (32.0-36.0); Mean Corpuscular Volume 95.7 fL (80.0-100.0); Monocytes # (auto) 0.5 uL; Monocytes % (auto) 8.7 % (0.0-12.0); Neutrophils # (auto) 3.4 uL; Neutrophils % (auto) 64.1 % (37.0-80.0); Nucleated Red Blood Cells % 0.1 %; Platelet Count (auto) 250 10^3/uL (140-450); Red Blood Cells 3.37 10^6/uL (4.5-5.90); Red Cell Distribution Width 15.4 % (11.8-14.3); White Blood Cell 5.3 10^3/uL (4.4-10.8)
[2018-01-29 06:01] VITALS: BP 89/66
[2018-01-29 06:10] LABS: Albumin 3.1 g/dL (3.4-5.0); BUN/Creatinine Ratio 16.1; Bilirubin, Total 0.3 mg/dL (0.2-1.0); Calcium 8.1 mg/dL (8.5-10.1); Potassium 3.6 mmol/L (3.5-5.1); Total Protein 6.1 g/dL (6.4-8.2)
[2018-01-29] MEDS: SODIUM CHLOR 0.9% PF (SALINE LOCK) 10ML VIAL/SYR IV SCH ×2 (06:51→14:01)
[2018-01-29 07:45] VITALS: BP 136/74
[2018-01-29] MEDS: ISOSORBIDE DINITRATE 10 MG TAB PO SCH (08:00)
[2018-01-29] MEDS ORDERED: IOHEXOL 350 MG/ML 100ML IJ ONE (09:37)
[2018-01-29] MEDS ORDERED: LIDOCAINE 2%HCL (LOCAL ANESTH.) INJ 20ML MDV ONE ×2 (09:37→10:27)
[2018-01-29] MEDS ORDERED: DOCUSATE SOD 100 MG CAP PO SCH (10:00)
[2018-01-29] MEDS ORDERED: LISINOPRIL 20 MG TAB PO SCH (10:00)
[2018-01-29] MEDS ORDERED: amLODIPine BESYLATE 5 MG TAB PO SCH (10:00)
[2018-01-29] MEDS ORDERED: ASPirin 81 mg TAB PO SCH (10:00)
[2018-01-29] MEDS ORDERED: CLOPIDOGREL BISULFATE 75 MG TAB PO SCH (10:00)
[2018-01-29] MEDS ORDERED: fentaNYL CITRATE 100 MCG/2 ML VL ONE (10:35)
[2018-01-29] MEDS ORDERED: MIDAZOLAM HCL 1MG/1ML-2 ML VIAL ONE (10:35)
[2018-01-29] MEDS ORDERED: IODIXANOL 320MG/ML 100ML BTL IV ONE (10:36)
[2018-01-29] MEDS ORDERED: hydrALAZINE HCL 20 MG/ML VL ONE (11:18)
[2018-01-29] MEDS: DULoxetine HCL 30 MG CAP PO SCH (13:17)
[2018-01-29] MEDS: CARVEDILOL 3.125 MG TAB PO SCH (13:18)
[2018-01-29] MEDS: OXYBUTYNIN CHL 5 MG TAB PO SCH (13:19)
[2018-01-29] MEDS: HYDROcodone-ACET 5/325MG TAB PO PRN (13:20)
[2018-01-29] MEDS ORDERED: RANO1000 PO (13:59)
[2018-01-29 14:59] VITALS: BP 136/74
== END 2018-01-29 15:30 | disposition home or self-care (01) | DRG 287 ==
LOC: ER 07:28 → EDBD 07:28 → TELE 07:29 → TELE-CENTR 17:18
PROVIDERS: ADMIT Internal Medicine; ATTEND Internal Medicine
PROC: 4A023N7 Measurement of Cardiac Sampling and Pressure, Left Heart, Percutaneous Approach (ICD-10-PCS; principal; 2018-01-29)
PROC: B2111ZZ Fluoroscopy of Multiple Coronary Arteries using Low Osmolar Contrast (ICD-10-PCS; 2018-01-29)
PROC: B2151ZZ Fluoroscopy of Left Heart using Low Osmolar Contrast (ICD-10-PCS; 2018-01-29)
DX: I25.118 Atherosclerotic heart disease of native coronary artery with other forms of angina pectoris (principal); C61 Malignant neoplasm of prostate; D63.8 Anemia in other chronic diseases classified elsewhere; E78.5 Hyperlipidemia, unspecified; F32.9 Major depressive disorder, single episode, unspecified; J98.11 Atelectasis; F41.9 Anxiety disorder, unspecified; K21.9 Gastro-esophageal reflux disease without esophagitis; R32 Unspecified urinary incontinence; I12.9 Hypertensive chronic kidney disease with stage 1 through stage 4 chronic kidney disease, or unspecified chronic kidney disease; R07.89 Other chest pain; N18.2 Chronic kidney disease, stage 2 (mild); Z86.14 Personal history of Methicillin resistant Staphylococcus aureus infection; Z95.5 Presence of coronary angioplasty implant and graft; Z79.899 Other long term (current) drug therapy; Z88.8 Allergy status to other drugs, medicaments and biological substances; Z82.49 Family history of ischemic heart disease and other diseases of the circulatory system
CPT/HCPCS: 36415; 71045; 80053; 80061; 81001; 83735; 83880; 84484; 85025; 85610; 85730; 86850; 86900; 86901; 87081; 93005; 93458; 96361; 96374; 96375; 99152; 99153; 99291; J1885; J2250; J2405; Q9967

== ENCOUNTER 2018-04-27 13:16 | Inpatient (IN) | payer OTHER ==
[~2018-04-27] VITALS: Ht 175.3 cm; Wt 79.4 kg
[2018-04-27] MEDS: CLINDAMYCIN 600MG IV 50 ML IV SCH ×2 (02:00→22:04)
[~2018-04-27 13:16] MED LIST changes: -MUPI2OIN10 TOP; +RANO1000 PO
[2018-04-27 14:26] LABS: Alanine Aminotransferase 24 U/L (16-61); Albumin 2.5 g/dL (3.4-5.0); Anion Gap 14 (5-15); Aspartate Aminotransferase 37 U/L (15-37); BUN/Creatinine Ratio 13.9; Blood Urea Nitrogen 28 mg/dL (7-18); Calcium 8.4 mg/dL (8.5-10.1); Carbon Dioxide 21 mmol/L (21-32); Chloride 103 mmol/L (98-107); GFR African American 42 mL/min; GFR Non-African American 35 mL/min; Glucose 95 mg/dL (74-106); Magnesium 2.3 mg/dL (1.6-2.6); Potassium 3.4 mmol/L (3.5-5.1); Sodium 138 mmol/L (136-145)
[2018-04-27 14:29] LABS: Hematocrit 33.9 % (41.0-53.0); Hemoglobin 11.1 g/dL (13.5-17.5); Mean Corpuscular Hemoglobin 30.6 pg (28.0-32.0); Mean Corpuscular Hgb Conc. 32.8 g/dL (32.0-36.0); Mean Corpuscular Volume 93.1 fL (80.0-100.0); Platelet Count (auto) 351 10^3/uL (140-450); Red Blood Cells 3.64 10^6/uL (4.5-5.90); Red Cell Distribution Width 14.8 % (11.8-14.3); White Blood Cell 22.8 10^3/uL (4.4-10.8)
[2018-04-27 14:31] LABS: Alkaline Phosphatase 171 U/L (45-117); Bilirubin, Total 0.6 mg/dL (0.2-1.0); Total Protein 6.7 g/dL (6.4-8.2)
[2018-04-27 14:45] LABS: Basophils % (manual) 0 (0.0-2.0); Blast Cells 0; Eosinophils % (manual) 0 (0-7); Metamyelocytes % 0; Myelocytes % 0; Promyelocytes % 0; Reactive Lymphocytes 0
[2018-04-27 15:24] LABS: INR 1.1 (0.9-1.15); Partial Thromboplastin Time 37.5 sec (23.78-33.04); Prothrombin Time 11.7 sec (9.27-12.13)
[2018-04-27] MEDS ORDERED: cefTRIAXone 1GM/10ml IVPUSH 10 ML IV ONE (15:45)
[2018-04-27] MEDS ORDERED: CLINDAMYCIN 600MG IV 50 ML IV ONE (16:00)
[2018-04-27] MEDS ORDERED: SODIUM CHLORIDE 0.9% 1,000 ML IV ONE ×2 (16:30→17:00)
[2018-04-27 16:43] LABS: Band Neutrophils % (manual) 6; Lymphocytes % (manual) 2 (10.0-50.0); Monocytes % (manual) 6 (0-12)
[2018-04-27] MEDS ORDERED: LACTULOSE 20Gm/30ML SOLN PO PRN (17:00)
[2018-04-27] MEDS ORDERED: ACETAMINOPHEN 500 MG TAB PO PRN (17:00)
[2018-04-27] MEDS ORDERED: TEMAZEPAM 15 MG CAP PO PRN (17:00)
[2018-04-27] MEDS ORDERED: NITROGLYCERIN 0.4MG/HR TOPICAL PATCH TD ONE (17:00)
[2018-04-27] MEDS ORDERED: NITROGLYCERIN 0.4 MG SL TAB SL PRN (17:00)
[2018-04-27] MEDS ORDERED: PROMETHAZINE HCL 25 MG/ML 1ML IV PRN (17:00)
[2018-04-27] MEDS ORDERED: MORPHINE SULF INJ 2 MG/ML SYRINGE 1ML IV PRN (17:00)
[2018-04-27] MEDS ORDERED: LORazepam 0.5 MG TAB PO PRN (17:00)
[2018-04-27] MEDS: MORPHINE SULF INJ 2 MG/ML SYRINGE 1ML IV PRN (17:12)
[2018-04-27 19:35] VITALS: BP 118/72
[2018-04-27 21:30] VITALS: BP 139/87
[2018-04-27] MEDS: RANOLAZINE ER 500 MG TAB PO SCH (22:00)
[2018-04-27] MEDS ORDERED: ATORVASTATIN 20 MG TAB PO SCH (22:00)
[2018-04-27] MEDS: SODIUM CHLORIDE 0.9% 1,000 ML IV SCH ×2 (22:02→22:05)
[2018-04-27] MEDS: METOPROLOL TARTRATE 25 MG TAB PO SCH (22:04)
[2018-04-27] MEDS: ATORVASTATIN 20 MG TAB PO SCH (22:04)
[2018-04-27] MEDS: HYDROcodone-ACET 5/325MG TAB PO PRN (22:05)
[2018-04-27] MEDS: ALPRAZolam 0.5 MG TAB PO PRN (22:05)
[2018-04-27 22:36] LABS: Urine Bacteria NONE SEEN /hpf (None Seen); Urine Blood Negative /uL (Negative); Urine Hyaline Cast FEW /lpf (0 - 2); Urine Mucus FEW (None Seen); Urine Specific Gravity 1.025 (1.001-1.035); Urine WBC 4 /hpf (0 - 3)
[2018-04-27] MEDS ORDERED: diphenhdrAMINE HCL 50 MG/1 ML VL IV ONE (23:45)
[2018-04-27] MEDS ORDERED: HALOPERIDOL LACTATE 5 MG/ML INJ VIAL IM PRN (23:45)
[2018-04-28 05:07] VITALS: BP 125/79
[2018-04-28 06:00] LABS: Cholesterol < 50 mg/dL (< 200); HDL Cholesterol 13 mg/dL (40-59); LDL Cholesterol 31 mg/dL (< 100); Triglycerides 69 mg/dL (< 150)
[2018-04-28] MEDS: ALPRAZolam 0.5 MG TAB PO PRN (06:30)
[2018-04-28] MEDS: CLINDAMYCIN 600MG IV 50 ML IV SCH ×3 (06:30→23:58)
[2018-04-28 09:00] VITALS: BP 129/80
[2018-04-28] MEDS ORDERED: cefTRIAXone 1GM/10ml IVPUSH 10 ML IV SCH (09:00)
[2018-04-28] MEDS ORDERED: NITROGLYCERIN 0.2MG/HR TOPICAL PATCH TD SCH (10:00)
[2018-04-28] MEDS: ENOXAPARIN SOD 40 MG/0.4 ML SYRINGE SC SCH ×2 (10:30→10:50)
[2018-04-28] MEDS: RANOLAZINE ER 500 MG TAB PO SCH (10:46)
[2018-04-28] MEDS: DULoxetine HCL 30 MG CAP PO SCH (10:47)
[2018-04-28] MEDS: NITROGLYCERIN 0.4MG/HR TOPICAL PATCH TD SCH (10:47)
[2018-04-28] MEDS: METOPROLOL TARTRATE 25 MG TAB PO SCH ×2 (10:48→23:59)
[2018-04-28] MEDS: HYDROcodone-ACET 5/325MG TAB PO PRN (10:48)
[2018-04-28] MEDS: LISINOPRIL 20 MG TAB PO SCH (10:49)
[2018-04-28] MEDS: CLOPIDOGREL BISULFATE 75 MG TAB PO SCH (10:49)
[2018-04-28] MEDS: ASPirin 81 mg TAB PO SCH (10:50)
[2018-04-28] MEDS: amLODIPine BESYLATE 5 MG TAB PO SCH (10:50)
[2018-04-28] MEDS: PANTOPRAZOLE 40 MG TAB PO SCH (10:50)
[2018-04-28] MEDS: SODIUM CHLORIDE 0.9% 1,000 ML IV SCH (10:58)
[2018-04-28 13:00] VITALS: BP 136/80
[2018-04-28 15:08] LABS: Basophils # (auto) 0 uL; Basophils % (auto) 0.2 % (0.0-2.0); Eosinophils # (auto) 0.3 uL; Eosinophils % (auto) 2.4 % (0.0-7.0); Hematocrit 27.5 % (41.0-53.0); Hemoglobin 9.3 g/dL (13.5-17.5); Lymphocytes # (auto) 0.6 uL; Lymphocytes % (auto) 4.5 % (10.0-50.0); Mean Corpuscular Hemoglobin 31.4 pg (28.0-32.0); Mean Corpuscular Hgb Conc. 33.7 g/dL (32.0-36.0); Monocytes # (auto) 0.9 uL; Monocytes % (auto) 6.5 % (0.0-12.0); Neutrophils # (auto) 11.9 uL; Neutrophils % (auto) 86.4 % (37.0-80.0); Platelet Count (auto) 334 10^3/uL (140-450); Red Blood Cells 2.95 10^6/uL (4.5-5.90); Red Cell Distribution Width 15.4 % (11.8-14.3); White Blood Cell 13.8 10^3/uL (4.4-10.8)
[2018-04-28 15:31] LABS: BUN/Creatinine Ratio 17.4; Calcium 7.3 mg/dL (8.5-10.1); Potassium 3.3 mmol/L (3.5-5.1)
[2018-04-28] MEDS: HYDROcodone-ACET 10/325MG TAB PO PRN (16:51)
[2018-04-28 17:00] VITALS: BP 128/79
[2018-04-28] MEDS ORDERED: OXYBUTYNIN CHL 5 MG TAB PO ONE (18:30)
[2018-04-28 21:58] VITALS: BP 112/63
[2018-04-28] MEDS: ATORVASTATIN 20 MG TAB PO SCH (23:59)
[2018-04-29] MEDS: SODIUM CHLORIDE 0.9% 1,000 ML IV SCH ×2 (00:01→01:53)
[2018-04-29] MEDS: ALPRAZolam 0.5 MG TAB PO PRN (01:10)
[2018-04-29] MEDS: MORPHINE SULF INJ 2 MG/ML SYRINGE 1ML IV PRN (01:40)
[2018-04-29 05:25] VITALS: BP 148/86
[2018-04-29] MEDS: CLINDAMYCIN 600MG IV 50 ML IV SCH (06:58)
[2018-04-29 08:03] VITALS: BP 128/72
[2018-04-29] MEDS ORDERED: OXYBUTYNIN CHL 5 MG TAB PO SCH (10:00)
[2018-04-29] MEDS: NITROGLYCERIN 0.4MG/HR TOPICAL PATCH TD SCH (11:22)
[2018-04-29] MEDS: ASPirin 81 mg TAB PO SCH (11:22)
[2018-04-29] MEDS: RANOLAZINE ER 500 MG TAB PO SCH ×2 (11:22)
[2018-04-29] MEDS: amLODIPine BESYLATE 5 MG TAB PO SCH (11:23)
[2018-04-29] MEDS: LISINOPRIL 20 MG TAB PO SCH (11:23)
[2018-04-29] MEDS: PANTOPRAZOLE 40 MG TAB PO SCH (11:23)
[2018-04-29] MEDS: CLOPIDOGREL BISULFATE 75 MG TAB PO SCH (11:23)
[2018-04-29] MEDS: DULoxetine HCL 30 MG CAP PO SCH (11:24)
[2018-04-29] MEDS: ENOXAPARIN SOD 40 MG/0.4 ML SYRINGE SC SCH (11:25)
[2018-04-29] MEDS: METOPROLOL TARTRATE 25 MG TAB PO SCH (11:25)
[2018-04-29] MEDS ORDERED: CLINDAMYCIN 600MG IV 50 ML IV SCH (12:00)
[2018-04-29] MEDS ORDERED: CLIN1CAP4 PO (14:44)
[2018-04-29] MEDS ORDERED: POTASSIUM CHL 20 Meq TABLET PO ONE (15:15)
[2018-04-29] MEDS: HYDROcodone-ACET 10/325MG TAB PO PRN ×2 (15:16)
[2018-04-29 17:24] VITALS: BP 127/72
[2018-04-29 17:35] VITALS: BP 127/72
== END 2018-04-29 18:25 | disposition home health service (06) | DRG 871 ==
LOC: EDBD 13:16 → ER 13:16 → TELE 13:17 → TELE-WESTW 19:05
PROVIDERS: ADMIT Internal Medicine; ATTEND Internal Medicine
DX: A41.9 Sepsis, unspecified organism (principal); G93.41 Metabolic encephalopathy; L03.317 Cellulitis of buttock; L02.31 Cutaneous abscess of buttock; N17.9 Acute kidney failure, unspecified; I13.0 Hypertensive heart and chronic kidney disease with heart failure and stage 1 through stage 4 chronic kidney disease, or unspecified chronic kidney disease; N18.3 Chronic kidney disease, stage 3 (moderate); E78.5 Hyperlipidemia, unspecified; F32.9 Major depressive disorder, single episode, unspecified; F41.9 Anxiety disorder, unspecified; I25.119 Atherosclerotic heart disease of native coronary artery with unspecified angina pectoris; I50.9 Heart failure, unspecified; K21.9 Gastro-esophageal reflux disease without esophagitis; K40.20 Bilateral inguinal hernia, without obstruction or gangrene, not specified as recurrent; K57.30 Diverticulosis of large intestine without perforation or abscess without bleeding; M16.0 Bilateral primary osteoarthritis of hip; Z80.42 Family history of malignant neoplasm of prostate; Z82.49 Family history of ischemic heart disease and other diseases of the circulatory system; Z82.5 Family history of asthma and other chronic lower respiratory diseases; Z83.3 Family history of diabetes mellitus; Z85.46 Personal history of malignant neoplasm of prostate; Z90.79 Acquired absence of other genital organ(s); Z95.5 Presence of coronary angioplasty implant and graft; Z88.8 Allergy status to other drugs, medicaments and biological substances; Z79.82 Long term (current) use of aspirin; Z79.899 Other long term (current) drug therapy
CPT/HCPCS: 36415; 70450; 71045; 72192; 76775; 76881; 80048; 80053; 80061; 81001; 82550; 83605; 83735; 83880; 84443; 84484; 85007; 85025; 85027; 85610; 85652; 85730; 86141; 87040; 87077; 87081; 87086; 87186; 87205; 93005; 93306; 96361; 96365; 96375; J0696; J3490

== ENCOUNTER 2019-10-05 05:33 | Emergency (ER) | payer OTHER ==
[~2019-10-05] VITALS: Ht 175.3 cm; Wt 79.4 kg
[~2019-10-05 05:33] MED LIST changes: +AMLO5TAB15 PO; -AMLO5TAB2 PO; +CLIN300C8 PO; -HYDR-4683 PO; +HYDR-4833 PO; +ONDA-144 PO; -ONDA4TAB5 PO
[2019-10-05 06:54] LABS: Basophils # (auto) 0 uL; Basophils % (auto) 0.4 % (0.0-2.0); Eosinophils # (auto) 0.2 uL; Eosinophils % (auto) 2.2 % (0.0-7.0); Hematocrit 39.5 % (41.0-53.0); Hemoglobin 13.3 g/dL (13.5-17.5); Lymphocytes # (auto) 0.9 uL; Lymphocytes % (auto) 11.1 % (10.0-50.0); Mean Corpuscular Hemoglobin 31.5 pg (28.0-32.0); Mean Corpuscular Hgb Conc. 33.6 g/dL (32.0-36.0); Monocytes # (auto) 0.6 uL; Monocytes % (auto) 7.4 % (0.0-12.0); Neutrophils # (auto) 6.3 uL; Neutrophils % (auto) 78.9 % (37.0-80.0); Platelet Count (auto) 275 10^3/uL (140-450); Red Blood Cells 4.21 10^6/uL (4.5-5.90)
[2019-10-05 06:55] LABS: Alanine Aminotransferase 17 U/L (16-61); Albumin 3.3 g/dL (3.4-5.0); Anion Gap 10 (5-15); Aspartate Aminotransferase 20 U/L (15-37); BUN/Creatinine Ratio 14.9; Blood Urea Nitrogen 20 mg/dL (7-18); Calcium 8.4 mg/dL (8.5-10.1); Carbon Dioxide 21 mmol/L (21-32); Chloride 111 mmol/L (98-107); GFR African American 68 mL/min; GFR Non-African American 56 mL/min; Glucose 113 mg/dL (74-106); Magnesium 1.8 mg/dL (1.6-2.6); Potassium 3.9 mmol/L (3.5-5.1); Sodium 142 mmol/L (136-145)
[2019-10-05 06:58] LABS: Alkaline Phosphatase 89 U/L (45-117); Bilirubin, Total 0.4 mg/dL (0.2-1.0); Total Protein 7.1 g/dL (6.4-8.2)
[2019-10-05] MEDS ORDERED: MORPHINE SULFATE 4 MG/ML SYR/VIAL IV ONE (08:45)
[2019-10-05] MEDS ORDERED: ONDANSETRON HCL 4 MG/2 ML VIAL IV ONE (08:45)
[2019-10-05] MEDS ORDERED: LABETALOL HCL 5 MG/ML 4ML SYRINGE IV ONE (08:45)
[2019-10-05] MEDS ORDERED: MAGNESIUM SULFATE 1GM/100ML 100 ML IV SCH (09:15)
[2019-10-05 12:17] VITALS: BP 132/83
[2019-10-05] MEDS ORDERED: HYDROcodone-ACET 10/325MG TAB PO ONE (12:30)
== END 2019-10-05 12:40 | disposition home or self-care (01) ==
LOC: EDBD 05:33 → ER 05:33
DX: I13.0 Hypertensive heart and chronic kidney disease with heart failure and stage 1 through stage 4 chronic kidney disease, or unspecified chronic kidney disease (principal); I50.9 Heart failure, unspecified; N18.3 Chronic kidney disease, stage 3 (moderate); I25.10 Atherosclerotic heart disease of native coronary artery without angina pectoris; F32.9 Major depressive disorder, single episode, unspecified; F41.9 Anxiety disorder, unspecified; E78.5 Hyperlipidemia, unspecified; Z79.82 Long term (current) use of aspirin; Z98.61 Coronary angioplasty status; Z79.899 Other long term (current) drug therapy; Z88.3 Allergy status to other anti-infective agents
CPT/HCPCS: 36415; 71045; 80053; 83735; 84443; 84484; 85025; 93005; 96374; 96375; 99283; J2270; J2405; J3490

== ENCOUNTER 2020-08-23 08:07 | Emergency (ER) | payer OTHER ==
[2020-08-23] MEDS ORDERED: ATROPINE SULF 1 MG/10ml SYR IV ONE (08:08)
[2020-08-23] MEDS ORDERED: CALCIUM CHLOR(10%) 100MG/ML 10ML SYRINGE IV ONE (08:08)
[2020-08-23] MEDS ORDERED: DOPamine 1600mCg/ml 400MG/250ml NSorD5 KIT/BAG IV ONE (08:08)
[2020-08-23] MEDS ORDERED: AMIODARONE HCL (50 MG/ ML) 3 ML VIAL IV ONE (08:08)
[2020-08-23] MEDS ORDERED: SODIUM BICARBONATE 8.4% INJ 50ML SYRINGE IV ONE (08:08)
[2020-08-23] MEDS ORDERED: EPINEPHrine HCL 1 MG/10 ML SYRG IV ONE (08:08)
[2020-08-23] MEDS ORDERED: SODIUM CHLORIDE 0.9% 500 ML IV ONE (08:30)
[2020-08-23] MEDS ORDERED: NOREPINEPHRINE 8 MG/250ML KIT 250 ML IV SCH (08:30)
[2020-08-23] MEDS ORDERED: SODIUM BICARBONATE 8.4% INJ 50ML SYRINGE IV PRN (08:30)
[2020-08-23] MEDS ORDERED: MIDAZOLAM DRIP 50 mg/50mL 50 ML IV SCH (08:30)
[2020-08-23] MEDS ORDERED: NOREPINEPHRINE 8 MG/250ML KIT 250 ML IV ONE (08:36)
[2020-08-23 09:19] LABS: Basophils # (auto) 0 10 ^3/uL (0-0.2); Basophils % (auto) 0.4 % (0.0-2.0); Eosinophils # (auto) 0.2 10 ^3/uL (0-0.8); Eosinophils % (auto) 3.2 % (0.0-7.0); Hematocrit 33.2 % (41.0-53.0); Hemoglobin 10.6 g/dL (13.5-17.5); Lymphocytes # (auto) 1.3 10 ^3/uL (0.4-5.4); Lymphocytes % (auto) 19.8 % (10.0-50.0); Mean Corpuscular Hemoglobin 29.4 pg (28.0-32.0); Mean Corpuscular Hgb Conc. 32.1 g/dL (32.0-36.0); Mean Corpuscular Volume 91.7 fL (80.0-100.0); Monocytes # (auto) 0.2 10 ^3/uL (0-1.3); Monocytes % (auto) 3.4 % (0.0-12.0); Neutrophils # (auto) 4.9 10 ^3/uL (1.6-8.6); Neutrophils % (auto) 73.2 % (37.0-80.0); Nucleated Red Blood Cells % 0.1 %; Platelet Count (auto) 341 10^3/uL (140-450); Red Blood Cells 3.62 10^6/uL (4.5-5.90); Red Cell Distribution Width 15.6 % (11.8-14.3); White Blood Cell 6.7 10^3/uL (4.4-10.8)
[2020-08-23 09:21] LABS: INR 1.04 (0.9-1.15); Partial Thromboplastin Time 24.2 sec (23.0-31.2)
[2020-08-23 09:35] LABS: Albumin 2.8 g/dL (3.4-5.0); BUN/Creatinine Ratio 19.6; Calcium 7.6 mg/dL (8.5-10.1); Lactic Acid w/Reflex 3.4 mmol/L (0.4-2.0); Potassium 4.1 mmol/L (3.5-5.1)
[2020-08-23 09:45] LABS: Bilirubin, Total 0.2 mg/dL (0.2-1.0)
[2020-08-23] MEDS ORDERED: DOXYCYCLINE 100MG/250ML 250 ML IV ONE (10:45)
[2020-08-23 13:00] VITALS: BP 160/117
== END 2020-08-23 13:48 | disposition short-term general hospital (02) ==
LOC: EDBD 08:07 → ER 08:07
DX: S06.301A Unspecified focal traumatic brain injury with loss of consciousness of 30 minutes or less, initial encounter (principal); J96.00 Acute respiratory failure, unspecified whether with hypoxia or hypercapnia; I46.9 Cardiac arrest, cause unspecified; Z20.828 Contact with and (suspected) exposure to other viral communicable diseases; X58.XXXA Exposure to other specified factors, initial encounter; Y93.89 Activity, other specified; Y92.89 Other specified places as the place of occurrence of the external cause; Y99.8 Other external cause status
CPT/HCPCS: 36415; 36556; 36600; 70450; 74176; 80053; 82805; 82962; 83605; 84484; 85025; 85610; 85730; 87040; 87070; 87077; 87186; 87205; 87426; 92950; 96361; 96365; 96366; 96375; 99291; C9803; J0171; J0282; J1265; J2250; J3490; U0003; 94002